=== PATIENT | female | born 1940 | race Caucasian/White ===

== ENCOUNTER 2019-03-10 20:52 | Inpatient (IN) | payer MEDICARE, BC ==
[2019-03-10] MEDS ORDERED: Ketorolac 30 MG/ML SDV IM ONE ×2 (21:00→21:40)
[2019-03-10] MEDS ORDERED: Cyclobenzaprine 10 MG Tab PO ONE (21:04)
--- NOTE | 2019-03-10 21:06 | EDM.PDOC ---
ED HPI GENERAL MEDICAL PROBLEM - General Chief Complaint: Back Pain or Injury Stated Complaint: EXTREME BACK PAIN Time Seen by Provider: 03/10/19 21:01 Source of Information: Reports: Patient History Limitations: Reports: No Limitations - History of Present Illness INITIAL COMMENTS - FREE TEXT/NARRATIVE: give long h/o on-off LBP but gotten worse since Tuesday. states sharp on-off with certain movements. denies radiation down legs. right now it's the both sides of back hurts but usually it's left. Lower Back Pain Score (Numeric/FACES): 0 - Related Data Allergies Allergy/AdvReac Type Severity Reaction Status Date / Time adhesive tape Allergy Rash Verified 12/26/15 07:52 Home Meds: Home Meds Anastrozole 1 mg PO BID 12/25/15 [History] Atenolol 25 mg PO DAILY 12/25/15 [History] Levothyroxine 125 mcg PO ACBREAKFAST 12/25/15 [History] Cetirizine HCl [Zyrtec] 10 mg PO DAILY 03/10/19 [History] Furosemide 20 mg PO DAILY 03/10/19 [History] Lutein/Minerals/Vit A,C & E [Ocuvite] 1 tab PO DAILY 03/10/19 [History] Omeprazole 20 mg PO DAILY 03/10/19 [History] Ondansetron [Zofran] 8 mg PO Q8H PRN 03/10/19 [History] Potassium Chloride [Klor-Con] 20 meq PO BID 03/10/19 [History] Pyridoxine HCl [Vitamin B-6] 100 mg PO DAILY 03/10/19 [History] Sodium Bicarbonate 650 mg PO BID 03/10/19 [History] Past Medical History HEENT History: Reports: Impaired Vision, Other (See Below) Other HEENT History: WEARS CORRECTIVE LENSES Cardiovascular History: Reports: High Cholesterol, Hypertension, Other (See Below) Other Cardiovascular History: EDEMA Gastrointestinal History: Reports: Diverticulosis Genitourinary History: Reports: Chronic Renal Insuffiency, Other (See Below) Other Genitourinary History: STAGE III 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: , Other (See Below) Other GEAR AND SPLINE GRINDER History: UTERINE ADENOMA Musculoskeletal History: Reports: Other (See Below) Other Musculoskeletal History: DJD KNEES Psychiatric History: Reports: None Endocrine/Metabolic History: Reports: Hypothyroidism, Obesity/BMI 30+, Osteopenia Hematologic History: Reports: None Immunologic History: Reports: None Oncologic (Cancer) History: Reports: Basal Cell Carcinoma, Breast Dermatologic History: Reports: None - Infectious Disease History Infectious Disease History: Reports: Chicken Pox, Measles, Mumps - Past Surgical History HEENT Surgical History: Reports: Oral Surgery Female Surgical History: Reports: Breast Biopsy, D&C, Mastectomy, Oophorectomy ED ROS GENERAL - Review of Systems Review Of Systems: ROS reveals no pertinent complaints other than HPI. ED EXAM,LOWER BACK PAIN/INJURY - Physical Exam Exam: See Below Exam Limited By: No Limitations General Appearance: Alert, WD/WN, Mild Distress, Moderate Distress, Other ( discomfort) Ears: Hearing Grossly Normal Throat/Mouth: Normal Voice, No Airway Compromise Head: Atraumatic Neck: Non-Tender, Full Range of Motion Respiratory/Chest: No Respiratory Distress Cardiovascular: Regular Rate, Rhythm GI/Abdominal: Soft, Non-Tender Back Exam: Muscle Spasm, Paraspinal Tenderness, Other (L4-5-S1) Neurological: Alert, Oriented x 3 Psychiatric: Normal Affect, Normal Mood Skin Exam: Warm, Dry, Normal Color Lymphatic: No Adenopathy Course - Vital Signs Last Recorded V/S: Last Vital Signs Temp 36.6 C 03/10/19 20:55 Pulse 85 03/10/19 20:55 Resp 18 03/10/19 20:55 BP 124/91 H 03/10/19 20:55 Pulse Ox 98 03/10/19 20:55 - Orders/Labs/Meds Orders: Active Orders 24 hr Category Date Time Status Orphenadrine [Norflex] Med 03/10/19 21:15 Active 60 mg IM Q12H Medication Orders Orphenadrine Citrate (Norflex) 60 mg IM Q12H [facility] Last Admin: 03/10/19 21:07 Dose: 60 mg Meds: Medications Generic Name Dose Route Start Last Admin Trade Name Freq PRN Reason Stop Dose Admin Orphenadrine Citrate 60 mg 03/10/19 21:15 03/10/19 21:07 Norflex IM 60 mg Q12H [facility] Administration Discontinued Medications Generic Name Dose Route Start Last Admin Trade Name Freq PRN Reason Stop Dose Admin Cyclobenzaprine HCl 10 mg 03/10/19 21:04 Flexeril PO 03/10/19 21:05 ONETIME ONE Ketorolac Tromethamine 30 mg 03/10/19 21:00 Toradol IM 03/10/19 21:01 ONETIME ONE Ketorolac Tromethamine 30 mg 03/10/19 21:40 03/10/19 21:44 Toradol IM 03/10/19 21:41 30 mg ONETIME ONE Administration Orphenadrine Citrate 60 mg 03/10/19 21:00 Norflex IM Q12H [facility] - Re-Assessments/Exams Free Text/Narrative Re-Assessment/Exam: 03/10/19 23:[address] Hayden who kindly admitted pt. Departure - Departure Time of Disposition: 23:13 Disposition: Admitted As Inpatient 64 Condition: Fair Clinical Impression: Lumbar radiculopathy, acute - Discharge Information Forms: ED Department Discharge - My Orders Last 24 Hours: My Active Orders 03/10/19 21:15 Orphenadrine [Norflex] 60 mg IM Q12H - Assessment/Plan Last 24 Hours: My Active Orders 03/10/19 21:15 Orphenadrine [Norflex] 60 mg IM Q12H
--- NOTE | 2019-03-10 23:59 | PCM.HP ---
H&P History of Present Illness - General Date of Service: 03/10/19 Admit Problem/Dx: Admission Diagnosis/Problem Admission Diagnosis/Problem Lumbar radiculopathy/Lower back Pain Source of Information: Patient, EMS Notes Reviewed History Limitations: Reports: No Limitations - History of Present Illness Initial Comments - Free Text/Narative: Ms. Lazaro a 78 y.o.with PMH of Chronic kidney disease stage III, hypertension, Hematuria, Edema of Extremities, Hypokalemia, Chronic back Pain, History of breast cancer ( left Breast), pt leaves alone at home Patient presented to the ER today with complaints persistent lower back pain and gotten worse since Tuesday. Pain is sharp on-off with certain movements. denies radiation down legs. She now has pain on both sides of back hurts with movement , but the pain is localized mostly to the left. She had CT of [place] without contrast and showed no acute fracture and had Mild to moderate degenerative changes with multilevel broad-based Disc Bulge . In ER she has received Norflex 60 mg IM X 2 dose, Flexeril 10 mg PO and Ketorolac 30 mg IM X 2 dose and still she has pain with Movement and admitted for pain control and possible evaluation by PT/OT, Onset of Symptoms: Reports: Gradual Duration of Symptoms: Reports: Getting Worse Location: Reports: Back Quality: Reports: Sharp Improves with: Reports: Rest Worsens with: Reports: Movement Lower Back Pain Score (Numeric/FACES): 8 - Related Data Allergies/Adverse Reactions: Allergies Allergy/AdvReac Type Severity Reaction Status Date / Time adhesive tape Allergy Rash Verified 12/26/15 07:52 Home Medications: Home Meds Anastrozole 1 mg PO BID 12/25/15 [History] Atenolol 25 mg PO DAILY 12/25/15 [History] Levothyroxine 125 mcg PO ACBREAKFAST 12/25/15 [History] Cetirizine HCl [Zyrtec] 10 mg PO DAILY 03/10/19 [History] Furosemide 20 mg PO DAILY 03/10/19 [History] Omeprazole 20 mg PO DAILY PRN 03/10/19 [History] Ondansetron [Zofran] 8 mg PO Q8H PRN 03/10/19 [History] Potassium Chloride [Klor-Con] 20 meq PO BID 03/10/19 [History] Pyridoxine HCl [Vitamin B-6] 100 mg PO DAILY 03/10/19 [History] Sodium Bicarbonate 650 mg PO BID 03/10/19 [History] Past Medical History HEENT History: Reports: Impaired Vision, Other (See Below) Other HEENT History: WEARS CORRECTIVE LENSES Cardiovascular History: Reports: High Cholesterol, Hypertension, Other (See Below) Other Cardiovascular History: EDEMA Gastrointestinal History: Reports: Diverticulosis Genitourinary History: Reports: Chronic Renal Insuffiency, Other (See Below) Other Genitourinary History: STAGE III 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: , Other (See Below) Other OB/BYN History: UTERINE ADENOMA Musculoskeletal History: Reports: Other (See Below) Other Musculoskeletal History: DJD KNEES Psychiatric History: Reports: None Endocrine/Metabolic History: Reports: Hypothyroidism, Obesity/BMI 30+, Osteopenia Hematologic History: Reports: None Immunologic History: Reports: None Oncologic (Cancer) History: Reports: Basal Cell Carcinoma, Breast Dermatologic History: Reports: None - Infectious Disease History Infectious Disease History: Reports: Chicken Pox, Measles, Mumps - Past Surgical History HEENT Surgical History: Reports: Oral Surgery Female Surgical History: Reports: Breast Biopsy, D&C, Mastectomy, Oophorectomy Social & Family History - Tobacco Use Smoking Status *Q: Never Smoker Second Hand Smoke Exposure: No - Recreational Drug Use Recreational Drug Use: No H&P Review of Systems - Review of Systems: Review Of Systems: See Below General: Reports: Other (back Pain). Denies: Fever, Chills, Malaise, Weakness HEENT: Denies: Headaches, Sinus Congestion, Sore Throat, Visual Changes Pulmonary: Denies: Shortness of Breath, Wheezing, Cough, Sputum Cardiovascular: Denies: Chest Pain, Dyspnea on Exertion, Lightheadedness Gastrointestinal: Denies: Abdominal Pain, Diarrhea, Nausea, Vomiting Genitourinary: Denies: Dysuria, Burning, Urgency Musculoskeletal: Reports: Back Pain, Muscle Stiffness Skin: Denies: Jaundice, Dryness, Bruising Psychiatric: Reports: No Symptoms Neurological: Reports: Difficulty Walking. Denies: Dizziness, Numbness, Tingling, Tremors Immunologic: Reports: No Symptoms Exam - Exam Exam: See Below - Vital Signs Vital Signs: Last Vital Signs Temp 36.6 C 03/10/19 20:55 Pulse 85 03/10/19 20:55 Resp 18 03/10/19 20:55 BP 124/91 H 03/10/19 20:55 Pulse Ox 98 03/10/19 20:55 Weight: 91.308 kg - Exam Quality Assessment: DVT Prophylaxis. No: Supplemental Oxygen, Central Line/PICC , Urinary Catheter General: Alert, Oriented, Cooperative HEENT: Conjunctiva Clear, Hearing Intact, Mucosa Moist & [place], Pupils Equal, Pupils Reactive Neck: Supple. No: Lymphadenopathy, Thyromegaly Lungs: Clear to Auscultation, Normal Respiratory Effort. No: Wheezing Cardiovascular: Regular Rate, Regular Rhythm, Normal S1, Normal S2, Systolic Murmur GI/Abdominal Exam: Normal Bowel Sounds, Soft, Non-Tender, No Distention. No: Rebound, Tender (Female) Exam: Deferred Rectal (Female) Exam: Deferred Back Exam: Normal Inspection, Muscle Spasm, Vertebral Tenderness Extremities: Normal Inspection, No Pedal Edema Skin: Warm, Dry, Intact Neurological: Cranial Nerves Intact, Reflexes Equal Bilateral Neuro Extensive - Mental Status: Alert, Oriented x3, Normal Mood/Affect, Normal Cognition, Memory Intact Neuro Extensive - Motor, Sensory, Reflexes: CN II-XII Intact Psychiatric: Alert, Normal Affect, Normal Mood - Patient Data Result Diagrams: 03/11/19 06:05 - Problem List (1) Back pain SNOMED Code(s): 525984197 ICD Code: M54.9 - DORSALGIA, UNSPECIFIED Status: Acute Current Visit: Yes (2) Lumbar radiculopathy, acute SNOMED Code(s): 489770195, 797545973 ICD Code: M54.16 - RADICULOPATHY, LUMBAR REGION Status: Acute Current Visit: No (3) Hypertension SNOMED Code(s): 24002302 ICD Code: I10 - ESSENTIAL (PRIMARY) HYPERTENSION Status: Acute Current Visit: Yes (4) Hypothyroidism SNOMED Code(s): 16499285 ICD Code: E03.9 - HYPOTHYROIDISM, UNSPECIFIED Status: Acute Current Visit : Yes Problem List Initiated/Reviewed/Updated: Yes Orders Last 24hrs: Active Orders 24 hr Category Date Time Status Admission Diagnosis [ADT] Stat ADT 03/10/19 23:14 Ordered Admission Status [Patient Status] [ADT] Routine ADT 03/10/19 23:14 Active Orphenadrine [Norflex] Med 03/10/19 21:15 Active 60 mg IM Q12H Medication Orders Orphenadrine Citrate (Norflex) 60 mg IM Q12H [facility] Last Admin: 03/10/19 21:07 Dose: 60 mg Assessment/Plan Comment:: Ms. Iveth martin 78 y.o.with PMH of Chronic kidney disease stage III, hypertension, Hematuria, Edema of Extremities, Hypokalemia, Chronic back Pain, History of breast cancer ( left Breast), pt leaves alone at home Patient presented to the ER today with complaints persistent lower back pain and gotten worse since Tuesday. Pain is sharp on-off with certain movements. denies radiation down legs. She now has pain on both sides of back hurts with movement , but the pain is localized mostly to the left. She had CT of [place] without contrast and showed no acute fracture and had Mild to moderate degenerative changes with Multilevel disc bulge. In ER she has received Norflex 60 mg IM X 2 dose, Flexeril 10 mg PO and Ketorolac 30 mg IM X 2 dose and still she has pain with Movement and admitted for pain control and possible evaluation by PT/OT Impression and Plan: 1. Lower back Pain: The pt had CT showed no fracture or disc herniation, but has degenerative changes with multilevel disc-bulge, the etiology likely muscle spasm/multilevel Disc bulge -Will start her on percocet 5/325 mg q6 hrs PRN for pain -Will also Continue Tylenol 650 mg q8hrs -Will start Flexeril at 10 mg BID -Continue Norflex 60 mg IM BID -Avoid NSAID with CKD stage III -Consult PT/OT 2. Hypertension: BP acceptable Continue Atenolol at 25 mg daily 3. CKD stage III: Secondary to hypertension, Avoid NSAID, has received Ketorolac in ER 4. Hypothyroidism: Continue Levothyroxine 5. History of Breast cancer: Continue Home Medication ( Anstrozole) 6. Hypokalemia: This is secondary to diuresis and will continue potassium chloride at 20 meq BID 7. DVT Prophylaxis: Heparin 5000 units TID 8. GI prophylaxis": Continue Protonix Code Status: Discussed with pt and she is Full Code
[2019-03-11] MEDS ORDERED: Acetaminophen 325 MG Tab PO PRN (00:50)
[2019-03-11] MEDS ORDERED: Docusate Sodium 100 MG Cap PO PRN (00:50)
[2019-03-11] MEDS ORDERED: Ondansetron 4 MG Tab.DIS PO PRN (01:15)
[2019-03-11] MEDS: Acetaminophen/oxyCODONE 325-5 MG Tab PO PRN (01:23)
[2019-03-11] MEDS: Heparin Sodium 5,000 Units/ML Vial SUBCUT SCH ×4 (01:26→21:17)
[2019-03-11] MEDS: Omeprazole 20 MG Cap.CR PO SCH (06:27)
[2019-03-11] MEDS: Levothyroxine 125 MCG Tab PO SCH (06:27)
[2019-03-11 06:37] LABS: ANION GAP 14.2
[2019-03-11] MEDS ORDERED: ANASTROZOLE 1 MG PO SCH (09:00)
[2019-03-11] MEDS ORDERED: Cyclobenzaprine 10 MG Tab PO SCH (09:00)
[2019-03-11] MEDS ORDERED: Non-Formulary Medication 1 Each (Cetirizine Hcl [Zyrtec] 10 MG) PO SCH (09:00)
[2019-03-11] MEDS: Potassium Chloride 10 MEQ Tab.ER PO SCH ×2 (09:15→17:47)
[2019-03-11] MEDS: Vitamin B6-pyridOXINE 100 MG Tab PO SCH (09:15)
[2019-03-11] MEDS: Sodium Bicarbonate 650 MG Tab PO SCH ×2 (09:15→21:16)
[2019-03-11] MEDS: Furosemide 20 MG Tab PO SCH (09:15)
[2019-03-11] MEDS: Lutein/Minerals/Vit A,C & E Tab PO SCH (09:16)
[2019-03-11] MEDS: Atenolol 25 MG Tab PO SCH ×2 (09:39→14:41)
[2019-03-11] MEDS ORDERED: Calcium Gluconate 10% 1 GM/10 ML SDV IVPUSH ONE (10:57)
--- NOTE | 2019-03-11 11:04 | PCM.PN ---
- General Info Date of Service: 03/11/19 Admission Dx/Problem (Free Text): Admission Diagnosis/Problem Admission Diagnosis/Problem Lumbar radiculopathy/Lower back Pain Subjective Update: pt was seen in rounds today, Feels better and able come out of bed with assistance and also able to go to rest room, was seen by OT and need to do more work with her, appetite is good, No fever or chill, slept well Functional Status: Reports: Pain Controlled, Tolerating Diet, Ambulating (with assistance), Urinating - Review of Systems General: Reports: Weakness, Appetite (good). Denies: Fever, Chills HEENT: Denies: Dysphasia, Headaches, Sinus Congestion, Sore Throat, Visual Changes Pulmonary: Denies: Shortness of Breath, Cough, Sputum, Wheezing Cardiovascular: Denies: Chest Pain, Dyspnea on Exertion, Edema, Lightheadedness Gastrointestinal: Denies: Abdominal Pain, Difficulty Swallowing, Nausea, Vomiting Genitourinary: Denies: Dysuria, Burning, Urgency Musculoskeletal: Denies: Neck Pain, Back Pain, Joint Swelling Skin: Denies: Cyanosis, Jaundice, Bruising, Pruritis, Rash Neurological: Reports: Tingling. Denies: Confusion, Numbness Psychiatric: Denies: Confusion, Anxiety - Patient Data Vitals - Most Recent: Last Vital Signs Temp 36.1 C 03/11/19 08:00 Pulse 77 03/11/19 09:39 Resp 18 03/11/19 08:00 BP 108/48 L 03/11/19 09:39 Pulse Ox 99 03/11/19 08:00 Weight - Most Recent: 91.308 kg Lab Results Last 24 Hours: Laboratory Results - last 24 hr 03/11/19 03/11/19 Range/Units 06:05 06:05 Sodium 141 (135-145) mmol/L Potassium 4.2 (3.6-5.0) mmol/L Chloride 105 (101-111) mmol/L Carbon Dioxide 26.0 (21.0-31.0) mmol/L Anion Gap 14.2 BUN 29 H (7-18) mg/dL Creatinine 1.6 H (0.6-1.3) mg/dL Est Cr Clr Drug Dosing 25.23 mL/min Estimated GFR (MDRD) 31 Glucose 80 (74-105) mg/dL Calcium 6.9 L (8.4-10.2) mg/dl Albumin 2.6 L (3.2-5.5) g/dl Med Orders - Current: Current Medications Acetaminophen (Tylenol) 650 mg PO Q4H PRN PRN Reason: Pain (mild 1-3 )/fever Atenolol (Tenormin) 25 mg PO DAILY [facility] Last Admin: 03/11/19 09:39 Dose: Not Given Calcium Gluconate (Calcium Gluconate) 2 gm IVPUSH ONETIME ONE Stop: 03/11/19 10:58 Cyclobenzaprine HCl (Flexeril) 10 mg PO BID@0600,1800 [facility] Docusate Sodium (Colace) 100 mg PO DAILY PRN PRN Reason: Constipation Furosemide (Lasix) 20 mg PO DAILY [facility] Last Admin: 03/11/19 09:15 Dose: 20 mg Heparin Sodium (Porcine) (Heparin Sodium) 5,000 units SUBCUT Q8H [facility] Levothyroxine Sodium (Levothyroxine) 125 mcg PO ACBREAKFAST [facility] Last Admin: 03/11/19 06:27 Dose: 125 mcg Loratadine (Claritin) 10 mg PO DAILY [facility] Multivitamins/Minerals (I-Crystal) 1 each PO DAILY [facility] Last Admin: 03/11/19 09:16 Dose: Not Given Non-Formulary Medication (Anastrozole [Anastrozole]) 1 mg PO BID [facility] Omeprazole (Omeprazole) 20 mg PO ACBREAKFAST [facility] Last Admin: 03/11/19 06:27 Dose: 20 mg Ondansetron HCl (Zofran Odt) 8 mg PO Q8H PRN PRN Reason: Nausea Orphenadrine Citrate (Norflex) 60 mg IM Q12H [facility] Oxycodone/Acetaminophen (Percocet 325-5 Mg) 1 tab PO Q4H PRN PRN Reason: Pain Last Admin: 03/11/19 01:23 Dose: 1 tab Potassium Chloride (Klor-Con 10) 20 meq PO BIDPC [facility] Last Admin: 03/11/19 09:15 Dose: 20 meq Pyridoxine HCl (Vitamin B6-Pyridoxine) 100 mg PO DAILY [facility] Last Admin: 03/11/19 09:15 Dose: 100 mg Sodium Bicarbonate (Sodium Bicarbonate) 650 mg PO BID [facility] Last Admin: 03/11/19 09:15 Dose: 650 mg Discontinued Medications Cyclobenzaprine HCl (Flexeril) 10 mg PO ONETIME ONE Stop: 03/10/19 21:05 Last Admin: 03/11/19 07:06 Dose: Not Given Cyclobenzaprine HCl (Flexeril) 10 mg PO BID [facility] Last Admin: 03/11/19 09:16 Dose: 10 mg Heparin Sodium (Porcine) (Heparin Sodium) 5,000 units SUBCUT Q8H [facility] Last Admin: 03/11/19 09:47 Dose: Not Given Ketorolac Tromethamine (Toradol) 30 mg IM ONETIME ONE Stop: 03/10/19 21:01 Last Admin: 03/11/19 07:05 Dose: Not Given Ketorolac Tromethamine (Toradol) 30 mg IM ONETIME ONE Stop: 03/10/19 21:41 Last Admin: 03/10/19 21:44 Dose: 30 mg Non-Formulary Medication (Cetirizine Hcl [Zyrtec]) 10 mg PO DAILY [facility] Last Admin: 03/11/19 09:55 Dose: Not Given Orphenadrine Citrate (Norflex) 60 mg IM Q12H [facility] Last Admin: 03/11/19 07:05 Dose: Not Given Orphenadrine Citrate (Norflex) 60 mg IM Q12H [facility] Last Admin: 03/11/19 09:48 Dose: Not Given - Exam Quality Assessment: DVT Prophylaxis. No: Supplemental Oxygen, Urine Catheter General: Alert, Oriented, Cooperative, No Acute Distress HEENT: Pupils Equal, Pupils Reactive, Mucous Membr. Moist/[place] Neck: No: No JVD, No Thyromegaly Lungs: Clear to Auscultation, Normal Respiratory Effort. No: Crackles, Wheezing Cardiovascular: Regular Rate, Regular Rhythm, Murmurs GI/Abdominal Exam: Normal Bowel Sounds, Soft, Non-Tender, No Organomegaly. No: Guarding, Rigid, Rebound (Female) Exam: Deferred Back Exam: Normal Inspection, Muscle Spasm Extremities: Normal Inspection, No Pedal Edema Skin: Warm, Dry, Intact Neurological: No New Focal Deficit, Normal Speech Psy/Mental Status: Alert, Normal Affect, Normal Mood - Problem List & Annotations (1) Back pain SNOMED Code(s): 701151470 Code(s): M54.9 - DORSALGIA, UNSPECIFIED Status: Acute Current Visit: Yes (2) Lumbar radiculopathy, acute SNOMED Code(s): 753492714, 550254825 Code(s): M54.16 - RADICULOPATHY, LUMBAR REGION Status: Acute Current Visit: No (3) Hypertension SNOMED Code(s): 82863940 Code(s): I10 - ESSENTIAL (PRIMARY) HYPERTENSION Status: Acute Current Visit: Yes (4) Hypothyroidism SNOMED Code(s): 03961999 Code(s): E03.9 - HYPOTHYROIDISM, UNSPECIFIED Status: Acute Current Visit : Yes (5) Hypokalemia SNOMED Code(s): 56604724 Code(s): E87.6 - HYPOKALEMIA Status: Acute Current Visit: Yes (6) Hypocalcemia SNOMED Code(s): 0407934 Code(s): E83.51 - HYPOCALCEMIA Status: Acute Current Visit: Yes - Problem List Review Problem List Initiated/Reviewed/Updated: Yes - My Orders Last 24 Hours: My Active Orders 03/11/19 00:50 Patient Status [ADT] Routine Ambulate [RC] ASDIRECTED Bedrest Bathroom Privileges [RC] ASDIRECTED Up With Assistance [RC] ASDIRECTED Up to Chair [RC] ASDIRECTED Vital Signs [RC] 04,08,12,16,20,00 Acetaminophen [Tylenol] 650 mg PO Q4H PRN Docusate Sodium [Colace] 100 mg PO DAILY PRN DVT/VTE Prophylaxis Reflex [OM.PC] Routine Resuscitation Status Routine 03/11/19 00:53 Oxygen Therapy [RC] PRN Pulse Oximetry [RC] PRN 03/11/19 00:54 Antiembolic Devices [RC] .Routine VTE/DVT Education [RC] DAILY Antiembolic Hose [OM.PC] Per Unit Routine 03/11/19 00:59 Acetaminophen/oxyCODONE [Percocet 325-5 MG] 1 tab PO Q4H PRN 03/11/19 01:06 OT Evaluation and Treatment [CONS] Routine PT Evaluation and Treatment [CONS] Routine 03/11/19 01:15 Ondansetron [Zofran ODT] 8 mg PO Q8H PRN 03/11/19 06:00 Levothyroxine 125 mcg PO ACBREAKFAST Omeprazole 20 mg PO ACBREAKFAST 03/11/19 08:30 Potassium Chloride [Klor-Con 10] 20 meq PO BIDPC 03/11/19 09:00 Anastrozole [Anastrozole] 1 mg PO BID Atenolol [Tenormin] 25 mg PO DAILY Furosemide [Lasix] 20 mg PO DAILY Lutein/Minerals/Vit A,C & E [I-Crystal] 1 each PO DAILY Sodium Bicarbonate 650 mg PO BID Vitamin B6-pyridOXINE 100 mg PO DAILY 03/11/19 10:00 Loratadine [Claritin] 10 mg PO DAILY 03/11/19 10:57 Calcium Gluconate 2 gm IVPUSH ONETIME ONE 03/11/19 14:00 Heparin Sodium 5,000 units SUBCUT Q8H 03/11/19 18:00 Cyclobenzaprine [Flexeril] 10 mg PO BID@0600,1800 03/11/19 Breakfast Regular Diet [DIET] - Plan Plan:: Ms. Lazaro a 78 y.o.with PMH of Chronic kidney disease stage III, hypertension, Hematuria, Edema of Extremities, Hypokalemia, Chronic back Pain, History of breast cancer ( left Breast), pt leaves alone at home Patient presented to the ER today with complaints persistent lower back pain and gotten worse since Tuesday. Pain is sharp on-off with certain movements. denies radiation down legs. She now has pain on both sides of back hurts with movement , but the pain is localized mostly to the left. She had CT of [place] without contrast and showed no acute fracture and had Mild to moderate degenerative changes with Multilevel disc bulge. In ER she has received Norflex 60 mg IM X 2 dose, Flexeril 10 mg PO and Ketorolac 30 mg IM X 2 dose and still she has pain with Movement and admitted for pain control and possible evaluation by PT/OT Impression and Plan: 1. Lower back Pain: The pt had CT showed no fracture or disc herniation, but has degenerative changes with multilevel disc-bulge, the etiology likely muscle spasm/multilevel Disc bulge -Will continue her on percocet 5/325 mg q6 hrs PRN for pain -Will also Continue Tylenol 650 mg q8hrs -Will continue Flexeril at 10 mg BID -Continue Norflex 60 mg IM BID -Avoid NSAID with CKD stage III -Consulted PT/OT and seen by OT today and will need little more work out and need help to come out of bed, follow recommendation -Possibly will to go home tomorrow ( PT/OT will evaluate home situation before discharge) 2. Hypertension: BP acceptable Continue Atenolol at 25 mg daily 3. CKD stage III: Secondary to hypertension, Avoid NSAID, has received Ketorolac in ER 4. Hypothyroidism: Continue Levothyroxine 5. History of Breast cancer: Continue Home Medication ( Anstrozole) 6. Hypokalemia: This is secondary to diuresis and will continue potassium chloride at 20 meq BID, potassium is acceptable 7. DVT Prophylaxis: Heparin 5000 units TID 8. GI prophylaxis": Continue Protonix 9. Hypocalcemia: Her calcium is low and will give calcium gluconate 2 gm IV X 1 dose Code Status: Discussed with pt and she is Full Code
[2019-03-11] MEDS ORDERED: Calcium Gluconate 2 GM in Sodium Chloride 0.9% 100 ML IV ONE (11:15)
[2019-03-11] MEDS: Loratadine 10 MG Tab PO SCH (11:41)
[2019-03-11] MEDS: Cyclobenzaprine 10 MG Tab PO SCH (19:05)
[2019-03-12] MEDS: Acetaminophen/oxyCODONE 325-5 MG Tab PO PRN (00:08)
[2019-03-12] MEDS: Heparin Sodium 5,000 Units/ML Vial SUBCUT SCH ×3 (06:13→21:34)
[2019-03-12] MEDS: Cyclobenzaprine 10 MG Tab PO SCH ×2 (06:14→18:24)
[2019-03-12] MEDS: Levothyroxine 125 MCG Tab PO SCH (06:14)
[2019-03-12] MEDS: Omeprazole 20 MG Cap.CR PO SCH (06:14)
[2019-03-12 06:48] LABS: ANION GAP 15.2
[2019-03-12] MEDS: Potassium Chloride 10 MEQ Tab.ER PO SCH ×2 (08:18→18:24)
[2019-03-12] MEDS: Atenolol 25 MG Tab PO SCH (08:19)
[2019-03-12] MEDS: Furosemide 20 MG Tab PO SCH (08:19)
[2019-03-12] MEDS: Sodium Bicarbonate 650 MG Tab PO SCH ×2 (08:19→20:46)
[2019-03-12] MEDS: Lutein/Minerals/Vit A,C & E Tab PO SCH (08:20)
[2019-03-12] MEDS: Loratadine 10 MG Tab PO SCH (08:20)
[2019-03-12] MEDS: Vitamin B6-pyridOXINE 100 MG Tab PO SCH (08:20)
[2019-03-12] MEDS: predniSONE 20 MG Tab PO SCH (08:25)
--- NOTE | 2019-03-12 09:50 | PN ---
DATE: 03/12/2019 SUBJECTIVE: The patient is an 78-year-old lady who was admitted with exacerbation of lower back pain and had a CAT scan of the lumbar spine without contrast and it showed no acute fracture, and showed moderate degenerative changes with disk disease. She was admitted for pain management. She was given some Norflex and Flexeril, and her low back pain has improved, but this morning she is complaining of pain on the base of her right big toe. She denies any injury or trauma. She denies any fever or chills, chest pain, shortness of breath, nor any other complaints. OBJECTIVE: Vital Signs: Blood pressure is 114/47, pulse 82, respirations of 18, temperature of 97.7. Heart: Regular rate and rhythm. Normal S1 and S2. No gallops. No rubs. Lungs: Equal bilaterally. No crackles. No wheezing. Abdomen: Soft, nontender. Bowel sounds positive. Extremities: Negative for any significant pedal edema. No calf tenderness. Examination of the right foot, dorsalis pedis pulses good. There is some erythema and pain on the base of the right big toe (podagra). IMPRESSION: 1. Acute gout attack (podagra). I am going to put her on prednisone 40 mg p.o. daily. We will also get a serum uric acid level. 2. Exacerbation of low back pain. The patient is clinically better. We will continue with her Flexeril and Norflex and Percocet. We will continue the rest of her management. [facility] /[id number] AISHA
[2019-03-13] MEDS: Omeprazole 20 MG Cap.CR PO SCH (05:37)
[2019-03-13] MEDS: Cyclobenzaprine 10 MG Tab PO SCH ×2 (05:38→17:59)
[2019-03-13] MEDS: Levothyroxine 125 MCG Tab PO SCH (05:38)
[2019-03-13] MEDS: Heparin Sodium 5,000 Units/ML Vial SUBCUT SCH ×3 (05:42→21:21)
[2019-03-13 06:47] LABS: ANION GAP 16.2
[2019-03-13] MEDS: Vitamin B6-pyridOXINE 100 MG Tab PO SCH (08:23)
[2019-03-13] MEDS: Furosemide 20 MG Tab PO SCH (08:23)
[2019-03-13] MEDS: Sodium Bicarbonate 650 MG Tab PO SCH ×2 (08:23→20:38)
[2019-03-13] MEDS: Loratadine 10 MG Tab PO SCH (08:24)
[2019-03-13] MEDS: Atenolol 25 MG Tab PO SCH (08:24)
[2019-03-13] MEDS: Lutein/Minerals/Vit A,C & E Tab PO SCH (08:24)
[2019-03-13] MEDS: predniSONE 20 MG Tab PO SCH (08:25)
[2019-03-13] MEDS: Potassium Chloride 10 MEQ Tab.ER PO SCH ×2 (08:25→17:59)
--- NOTE | 2019-03-13 11:43 | PN ---
DATE: 03/13/2019 SUBJECTIVE: The patient this morning is feeling much better and her right foot is feeling much better, although she is still complaining of pain when she steps on it, but so far, her low back pain has been doing well. She denies any other ongoing complaints. She denies any chest pain, shortness of breath, abdominal pain, or any other complaints. OBJECTIVE: Vital Signs: Blood pressure is 129/55, pulse 69, respiration of 20, temperature of 96.3. Heart: Regular rate and rhythm. Normal S1 and S2. No gallops. No rubs. Lungs: Equal bilaterally. No crackles. No wheezing. Abdomen: Soft, nontender. Bowel sounds positive. Extremities: Negative for any significant pedal edema. On examination of the right foot, there is still some redness on the base of the right big toe and some reproducible tenderness with palpation (podagra). PLAN: We will continue with her present management and we will keep her another day as the patient lives by herself and she has to walk ways going to the bathroom. [facility] /[id number] MTDD
[2019-03-14] MEDS: Omeprazole 20 MG Cap.CR PO SCH (05:53)
[2019-03-14] MEDS: Levothyroxine 125 MCG Tab PO SCH (05:53)
[2019-03-14] MEDS: Cyclobenzaprine 10 MG Tab PO SCH (05:53)
[2019-03-14] MEDS: Heparin Sodium 5,000 Units/ML Vial SUBCUT SCH ×3 (05:58→21:45)
[2019-03-14] MEDS: Sodium Bicarbonate 650 MG Tab PO SCH ×2 (08:51→21:46)
[2019-03-14] MEDS: Loratadine 10 MG Tab PO SCH (08:52)
[2019-03-14] MEDS: Vitamin B6-pyridOXINE 100 MG Tab PO SCH (08:52)
[2019-03-14] MEDS: Furosemide 20 MG Tab PO SCH (08:52)
[2019-03-14] MEDS: Atenolol 25 MG Tab PO SCH (08:53)
[2019-03-14] MEDS: predniSONE 20 MG Tab PO SCH (08:54)
[2019-03-14] MEDS: Lutein/Minerals/Vit A,C & E Tab PO SCH (08:55)
[2019-03-14] MEDS: Potassium Chloride 10 MEQ Tab.ER PO SCH (08:55)
[2019-03-14] MEDS ORDERED: Sodium Chloride 0.9% 500 ML IV SCH (13:15)
--- NOTE | 2019-03-14 13:27 | PN ---
DATE: 03/14/2019 SUBJECTIVE: Mrs. Soumya Meyer is an 78-year-old female with medical history significant for gout, was admitted to the hospital with complaints of increasing back pain and the hospital course complicated with right gouty arthritis involving the great toe. For the last 24 hours, the patient continues to have pain to the right great toe. She grades the pain as 4 to 5 by 10 in intensity, aggravated on ambulation, relieved with rest and pain medication. Not associated with nausea or vomiting. Denies any chest pain. No shortness of breath. No abdominal pain. She is also noted to have hypotensive episodes with blood pressure dropping down to 90 systolic. PHYSICAL EXAMINATION: Vitals Signs: Temperature of 98.2, pulse of 65, blood pressure of 100/51, respiratory rate of 18, and saturating at 97%. General Appearance: The patient is well oriented to time, place, and person. Follows commands spontaneously. Cardiovascular: S1 and S2 heard with normal intensity. No gallops. Respiratory: Clear to auscultation bilaterally. No wheeze. No crepitations. Abdomen: Soft. Bowel sounds positive. Nontender. No rigidity. Extremities: No edema in bilateral lower extremities. Mild tenderness and swelling noted to the right great toe, tender to palpation. Pulses felt well. MEDICATIONS: Reviewed. Continue with Percocet 5/325 mg every 4 hours as needed for pain, atenolol 25 mg daily, Flexeril 10 mg twice a day, docusate sodium 100 mg daily as needed, Lasix 20 mg daily, heparin 5000 subcutaneous q.8 hourly, levothyroxine 125 mcg daily, Claritin 10 mg daily, omeprazole 20 mg daily, Zofran 8 mg as needed, potassium chloride 20 mEq twice a day, prednisone 40 mg at breakfast, sodium bicarbonate 650 mg twice a day, vitamin B6 100 mg daily. LABORATORY DATA: No new labs ordered for today. Yesterday's labs are within normal limits. ASSESSMENT: 1. Intractable low back pain from degenerative disk disease, improved. 2. Right foot gouty arthritis, on prednisone. 3. Hypotensive episode with history of hypertension. 4. Chronic kidney disease. 5. Hypokalemia. 6. Hypothyroidism. PLAN: 1. Low back pain. The patient was initially admitted to the hospital with lower back pain secondary to degenerative disk disease. The patient had a CT scan, which did not show any acute lesion. The patient is currently on Percocet and Flexeril, which seem to be improving her symptoms. Her pain is much better. Continue with current medications. 2. Hypertension. The patient noted to have lower blood pressure. She is on atenolol 25 mg daily and also Percocet and Flexeril, which could be leading to lower blood pressure. We will decrease the Flexeril to 5 mg twice a day and we will closely follow. Continue with atenolol. 3. Chronic kidney disease, remains stable. Try to avoid nephrotoxic agents. Try to avoid any nonsteroidal anti-inflammatory agents. 4. DVT prophylaxis. Continue with heparin. 5. Hypokalemia, improved. Continue with potassium chloride. 6. Gouty arthritis. The patient is noted to have swelling and pain to the right great toe, improved after starting on prednisone. Continue with the prednisone. She might benefit from tapered dose of prednisone upon discharge. 7. Discharge process currently on hold secondary to the patient having lower blood pressure. [facility] /[id number]
[2019-03-14] MEDS ORDERED: Cyclobenzaprine 10 MG Tab PO SCH (18:00)
[2019-03-15] MEDS: Levothyroxine 125 MCG Tab PO SCH (05:34)
[2019-03-15] MEDS: Heparin Sodium 5,000 Units/ML Vial SUBCUT SCH ×3 (05:35→21:21)
[2019-03-15] MEDS: Omeprazole 20 MG Cap.CR PO SCH (05:35)
[2019-03-15 06:46] LABS: ANION GAP 13.4
[2019-03-15] MEDS: predniSONE 20 MG Tab PO SCH (08:12)
[2019-03-15] MEDS: Lutein/Minerals/Vit A,C & E Tab PO SCH (08:13)
[2019-03-15] MEDS: Potassium Chloride 10 MEQ Tab.ER PO SCH (08:13)
[2019-03-15] MEDS: Vitamin B6-pyridOXINE 100 MG Tab PO SCH (08:14)
[2019-03-15] MEDS: Furosemide 20 MG Tab PO SCH (08:15)
[2019-03-15] MEDS: Sodium Bicarbonate 650 MG Tab PO SCH ×2 (08:15→21:21)
[2019-03-15] MEDS: Loratadine 10 MG Tab PO SCH (08:15)
[2019-03-15] MEDS: Atenolol 25 MG Tab PO SCH (08:54)
[2019-03-15] MEDS ORDERED: Sodium Chloride 0.9% 1,000 ML IV SCH (11:45)
--- NOTE | 2019-03-15 15:19 | PN ---
DATE: 03/15/2019 SUBJECTIVE: Ms. Soumya Meyer is an 78-year-old female with a medical history significant for hypertension and gout, admitted to the hospital with low back pain and had complications with acute gouty arthritis and currently having hypotensive episodes. For the last 24 hours, the patient continues to have low blood pressure. She received a fluid bolus 500 mL normal saline yesterday. Despite that, the patient noted to have lower blood pressure this morning. We had to hold up the atenolol. She denies any complaints of chest pain. No shortness of breath. No abdominal pain. No nausea. No vomiting. No diarrhea. Her right foot pain is also improved. She denies any dizziness. PHYSICAL EXAMINATION: Vital Signs: Temperature of 97.6, pulse of 79, blood pressure 109/46, ranging between 91/38. respiratory rate of 18, and saturating at 98%. General Appearance: The patient is alert and oriented to time, place, and person. Follows commands spontaneously. Cardiovascular System: S1, S2 heard with normal intensity. No gallops. Respiratory: Clear to auscultation bilaterally. No wheeze. No crepitations. Abdomen: Soft. Bowel sounds positive. Nontender. No rigidity. Extremities: No edema in the bilateral lower extremities. Neurologic: No gross focal neurological deficit. MEDICATIONS: Reviewed. 1. Continue with Tylenol 650 every 4 hours as needed for pain. 2. Hold the atenolol. 3. Hold the lisinopril. 4. Hold the Lasix. 5. Continue with levothyroxine 125 mcg daily. 6. Claritin 10 mg daily. 7. Omeprazole 20 mg daily. 8. Prednisone decreased to 20 mg daily. 9. Start her on IV normal saline at 75 mL/h for the next 7 hours. LABORATORY DATA: Labs reviewed. Sodium 137, potassium 4.4, chloride 103, bicarb 25, BUN 33, creatinine 1.4, and glucose 88. ASSESSMENT: 1. Hypotensive episodes. 2. Acute gouty arthritis. 3. Intractable low back pain, improved. 4. Chronic kidney disease. 5. Hypokalemia. 6. Hypothyroidism. PLAN: 1. Hypotension. The patient continues to have low blood pressure. We will hold the atenolol, hold the lisinopril, hold the Lasix. In fact, we will start her on IV normal saline at 75 mL/h for the next 7 hours for maintaining euvolemic status and to avoid any hypotensive episodes. We will hold the discharge for today also as she continues to have lower blood pressure. We had to discontinue the Flexeril. 2. Intractable low back pain, much improved. Discontinue the Flexeril, secondary to low blood pressure. Continue the oral pain medications. 3. Acute gouty arthritis, improving on prednisone. Decrease the prednisone to 20 mg daily. 4. Chronic kidney disease. Be cautious secondary to hypotensive episode, which could aggravate the kidney dysfunction. We will have treated with IV normal saline at 75 mL/h to maintain euvolemic status. Try to avoid any hypotensive episodes. 5. Hypokalemia, improved. Her potassium is back to normal. Decrease the potassium chloride to 20 mg daily. 6. Discharge process currently on hold, secondary to continued hypotensive episodes. Discussed with family members at bedside. [facility] /[id number] AISHA
[2019-03-16] MEDS: Omeprazole 20 MG Cap.CR PO SCH (05:13)
[2019-03-16] MEDS: Levothyroxine 125 MCG Tab PO SCH (05:13)
[2019-03-16] MEDS: Heparin Sodium 5,000 Units/ML Vial SUBCUT SCH (05:13)
[2019-03-16] MEDS ORDERED: predniSONE 20 MG Tab PO SCH (08:00)
[2019-03-16] MEDS: Loratadine 10 MG Tab PO SCH (09:01)
[2019-03-16] MEDS: Potassium Chloride 10 MEQ Tab.ER PO SCH (09:02)
[2019-03-16] MEDS: Vitamin B6-pyridOXINE 100 MG Tab PO SCH (09:02)
[2019-03-16] MEDS: Sodium Bicarbonate 650 MG Tab PO SCH (09:02)
[2019-03-16] MEDS: Lutein/Minerals/Vit A,C & E Tab PO SCH (09:02)
[2019-03-16] MEDS: Atenolol 25 MG Tab PO SCH (10:35)
[2019-03-16] MEDS ORDERED: Metoprolol Tartrate 25 MG Tab PO SCH (11:45)
[2019-03-16 12:09] VITALS: BP 112/57; PULSE 73
--- NOTE | 2019-03-16 13:31 | DISCH ---
ADMITTING DIAGNOSES: 1. Intractable low back pain with lumbar radiculopathy. 2. Hypertension. 3. Hypokalemia. DISCHARGE DIAGNOSES: 1. Intractable low back pain with lumbar radiculopathy, improved. 2. Acute gouty arthritis, currently on tapered dose of steroid. 3. Hypertension with hypotensive episodes requiring further dose adjustment of medications, discontinued the atenolol and started on metoprolol 12.5 twice a day. 4. Chronic kidney disease, stable. HISTORY OF PRESENTING ILLNESS: Mrs. Soumya Meyer is an 78-year-old female with medical history significant for hypertension, hyperlipidemia, chronic kidney disease, hypothyroidism, edema to the extremities, chronic low back pain, history of breast cancer in the past, lives alone at home, presented to the ER with complaints of increasing low back pain and was noted to have radiculopathy. Her low back pain was treated with oral pain medication which has improved her symptoms. The patient had a CT scan of the lumbar spine without contrast showed no acute fractures and had [id number] degenerative changes with multilevel broad-based disk bulge. The patient was admitted and closely monitored. She was evaluated by Physical Therapy and Occupational Therapy. She had complications with acute gouty arthritis requiring prednisone dosing. The patient also had complications with low blood pressure, needing further dose adjustment of medications. We discontinued the Flexeril and we held the Lasix. We discontinued the atenolol on this admission. We start her back on metoprolol 12.5 mg twice a day for good control of her blood pressure. The patient is advised to start taking the Lasix from next week. She is advised not to drink lot of water and advised her for fluid restriction to 1.5 L a day. The patient had difficulty in ambulation, so a home health care referral was made. She will need continued physical therapy and occupational therapy as outpatient and so needed home health care. She will need nursing care for close monitoring of her medications including prednisone tapered dose. She will need physical therapy and occupational therapy at home. A home health care referral was made. She is discharged home in stable condition. She is advised to follow with her primary care physician next 1 week of time. DISCHARGE MEDICATIONS: 1. Tylenol 650 every 4 hours as needed for pain. 2. Anastrozole 1 mg daily. 3. Cetirizine 10 mg daily. 4. Lasix 20 mg daily starting from next week. 5. Levothyroxine 125 mcg daily. 6. Metoprolol 12.5 mg twice a day. 7. Omeprazole 20 mg daily. 8. Ondansetron 8 mg every 8 hours as needed for nausea. 9. Potassium chloride 20 mEq daily. 10.Pyridoxine 100 mg daily. 11.Sodium bicarbonate 650 mg twice a day. 12.Prednisone 10 mg daily for next 3 days and then taper down to 5 mg daily for 3 days. PHYSICAL EXAMINATION: On the day of discharge, Vital Signs: Temperature of 97.1, pulse of 74, blood pressure 125/62, respiratory rate of 20, saturating at 98% on room air. General Appearance: The patient is well oriented to time, place, and person. Follows commands spontaneously. Cardiovascular System: S1, S2 heard with normal intensity. No gallops. Respiratory System: Clear to auscultation bilaterally. No wheeze. No crepitations. Abdomen: Soft. Bowel sounds positive. Nontender. No rigidity. Extremities: No edema bilateral lower extremities. Neurology: No gross focal neurological deficits. CONDITION ON ADMISSION: Poor. CONDITION ON DISCHARGE: Stable. DISPOSITION: Discharged to home with home health care for continued physical therapy and occupational therapy and nursing cares for close monitoring of her medication. ACTIVITY: As tolerated with fall precautions. DIET: Cardiac healthy diet. FOLLOWUP: Follow with primary care physician next 1 week of time. Spent over 35 minutes of time in evaluating and treating this patient and making discharge plans. [facility] /[id number]
== END 2019-03-16 14:20 | disposition home or self-care (01) | DRG 552 ==
LOC: DL.ED 20:52 → DL.MS 23:14
PROVIDERS: ADMIT Internal Medicine Nephrology; ATTEND Internal Medicine
DX: M51.16 Intervertebral disc disorders with radiculopathy, lumbar region (principal); M10.9 Gout, unspecified; I12.9 Hypertensive chronic kidney disease with stage 1 through stage 4 chronic kidney disease, or unspecified chronic kidney disease; N18.3 Chronic kidney disease, stage 3 (moderate); I95.9 Hypotension, unspecified; E83.51 Hypocalcemia; E78.5 Hyperlipidemia, unspecified; E03.9 Hypothyroidism, unspecified; E87.6 Hypokalemia; T50.2X5A Adverse effect of carbonic-anhydrase inhibitors, benzothiadiazides and other diuretics, initial encounter; E78.00 Pure hypercholesterolemia, unspecified; E66.9 Obesity, unspecified; Z68.30 Body mass index [BMI] 30.0-30.9, adult; Z85.3 Personal history of malignant neoplasm of breast; Z91.09 Other allergy status, other than to drugs and biological substances; Z79.890 Hormone replacement therapy; Z79.899 Other long term (current) drug therapy
CPT/HCPCS: 72131; 96372 ×2; 99284; J1885; J2360; 36415; 80048; 82040; 84550; 85025; 90686; 97110-GO; 97116-GP; 97161-GP; 97165-GO; 97530-GO; A9270-GY; J0610; J1644; J7030; J7040; J7050

== ENCOUNTER 2024-12-18 05:50 | Day surgery (SDC) | payer MEDICARE, BC ==
[2024-12-18] MEDS ORDERED: Propofol 200 MG/20 ML SDV IV ONE (05:51)
[2024-12-18] MEDS ORDERED: Lactated Ringers 500 ML IV ONE (05:51)
[2024-12-18] MEDS ORDERED: Propofol 200 MG/20 ML SDV ONE (06:05)
[2024-12-18] MEDS: Lactated Ringers 1,000 ML IV SCH (06:26)
[2024-12-18 08:35] VITALS: BP 110/45; PULSE 74
== END 2024-12-18 08:40 | disposition home or self-care (01) ==
LOC: DL.ENDO 05:50
PROVIDERS: ATTEND Internal Medicine Gastroenterology
DX: D64.9 Anemia, unspecified (principal); R11.2 Nausea with vomiting, unspecified; R63.4 Abnormal weight loss; E66.9 Obesity, unspecified; Z91.09 Other allergy status, other than to drugs and biological substances; Z87.891 Personal history of nicotine dependence
CPT/HCPCS: 43239; 88305; J2003; J2704; J7120; 00731; 99100